=== PATIENT | female | born 1945 | race Caucasian/White ===

== ENCOUNTER 2021-07-21 09:48 | Observation (INO) | payer MEDICARE, MEDICAID, SELFPAY ==
[2021-07-21] VITALS (12 sets, daily range): BP systolic 136–184; BP diastolic 68–109; PULSE 53–106; RESP 18–97; TEMP 36.2–36.6; O2SAT 90–100; BMI 43.0
--- NOTE | ~2021-07-21 | XR_ITS ---
XR chest 1V portable 07/21/2021 11:25 Indication: Shortness of breath Procedure: AP portable chest Comparison: No prior studies for comparison. Findings: Cardiomegaly with interstitial edema. No significant effusion. No pneumothorax. No acute os seous abnormality. 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 Impression: 1: Cardiomegaly with interstitial edema. Reviewed, dictated and finalized at location B. Impression: 1: Cardiomegaly with interstitial edema.
--- NOTE | 2021-07-21 09:55 | ECG_ITS ---
Measurements Intervals [place] Rate: 98 P: 52 [place]: 150 QRS: 19 QRSD: 93 T: 71 QT: 328 QTc: 420 Interpretive Statements SINUS RHYTHM POSSIBLE LEFT ATRIAL ENLARGEMENT [-0.1mV P-WAVE IN V1/V2] NONSPECIFIC ST & T-WAVE ABNORMALITY POOR R-WAVE PROGRESSION ABNORMAL ECG NO PREVIOUS ECG AVAILABLE FOR COMPARISON Electronically Signed On 07-21-2021 10:28:31 CDT by Christopher Bush M.D.
--- NOTE | 2021-07-21 09:55 | ED.GENADULT ---
HPI - General Adult General Chief complaint: Shortness of Breath/Dyspnea Stated complaint: SOB History of Present Illness HPI narrative: 75-year-old female presenting to the emergency department from the eye clinic for evaluation of worsening shortness of breath. Patient was at the eye clinic for a cataract procedure. Patient had been told to hold her meds for today. Patient does have history of IL and CHF. Patient did not take her home medications this morning. While getting ready for the procedure they laid the patient back and she had worsened shortness of breath and had increased blood pressure. Upon arrival to the scene EMS found the patient to be saturating at 60% on room air with hypertension. Patient was placed on BiPAP and transferred to the emergency department. On arrival to the ED patient had very minimal air movement and BiPAP was maintained. Patient denies any recent illnesses cough colds or fevers. Patient denies any associated chest pain but does have some shortness of breath which she states she does feel is improving. History of IL and CHF. Related Data Home Medications Medication Instructions Recorded Confirmed carvedilol 12.5 mg tablet 1 tablet PO BID 07/21/21 07/21/21 cholecalciferol (vitamin D3) 50 50 mcg PO BID 07/21/21 07/21/21 mcg (2,000 unit) tablet (Vitamin D3) fluticasone furoate 100 1 ea inhalation PRN 07/21/21 07/21/21 mcg-vilanterol 25 mcg/dose inhalation powder (Breo Ellipta) hydralazine 25 mg tablet 1 tablet PO BID 07/21/21 07/21/21 rosuvastatin 40 mg tablet 1 tablet PO DAILY 07/21/21 07/21/21 Allergies Allergy/AdvReac Type Severity Reaction Status Date / Time aspirin AdvReac Other Verified 07/21/21 09:52 Sulfa (Sulfonamide AdvReac Headache Verified 07/21/21 09:52 Antibiotics) Review of Systems Review of Systems: CONSTITUTIONAL: Denies fever, chills, or sweats. EYES: Denies visual changes, redness, or discharge. ENT: Denies rhinorrhea, congestion, sore throat, or otalgia. CARDIOVASCULAR: See HPI RESPIRATORY: See HPI GASTROINTESTINAL: Denies abdominal pain, nausea, vomiting, or diarrhea. GENITOURINARY: Denies dysuria or hematuria. SKIN: Denies rash or itching. MUSCULOSKELETAL: Denies back pain, joint pain, or myalgia. NEUROLOGIC: Denies headache, numbness, or weakness. PSYCHIATRIC: Denies anxiety or depression. [facility] Past Medical History Medical History (Updated 07/21/21 @ 15:58 by Rody Brink APRN) Asthma Chronic kidney disease Coronary artery disease Hypertension Surgical History Surgical History (Updated 07/21/21 @ 15:58 by Rody Brink APRN) Stented coronary artery Patient states 6 coronary stents Social History Social History Smoking status: Never smoker Alcohol intake: never Substance use: never Spiritual care concerns: No Exam Narrative: APPEARANCE: Some respiratory distress upon arrival. HEAD: normocephalic, atraumatic. EYES: PERRLA/EOMI, conjunctivae clear. NOSE: Normal no drainage THROAT: Pharynx clear, no exudate. NECK: Supple. No adenopathy, no masses. RESPIRATORY: Minimal air movement but rhonchi in lower lobes CARDIOVASCULAR: Tachycardia with regular rhythm ABDOMINAL: Soft, nontender, nondistended, normal bowel sounds MUSCULOSKELETAL: Moves all extremities. Lower extremity edema NEURO: Alert. Cranial nerves II through XII intact. Grossly intact SKIN: Warm, dry. Normal Color PSYCHIATRIC: Normal affect/mood. Course Course Emergency Course: Patient was initially placed on BiPAP with settings 14/7. Patient was treated with IV Lasix, and patient was also treated with IV hydralazine. Patient was also restarted on her morning medications of carvedilol and p.o. hydralazine. Patient did remove herself from BiPAP and tolerated nasal cannula. Patient trialed herself off of nasal cannula but had a desaturation down and to the 70s. When placed back on nasal cannula at 2 L patient saturation is high 90s.
[2021-07-21] MEDS: ALBUTEROL SULFATE NEB 2.5 MG/3 ML INH 10 MG INHALATION (09:59)
[2021-07-21] MEDS: IPRATROPIUM BR 0.02% INH SOLN 0.5 MG/2.5 ML VIAL 2 MG INHALATION (09:59)
[2021-07-21 10:14] LABS: Basophils Percent Auto 0.3 % (0.2-1.2); Eosinophils Absolute Auto 0.1 K/mm3 (0-0.3); Hematocrit 40.8 % (37.0-47.0); Hemoglobin 12.9 g/dL (12.0-15.0); Immature Granulocyte Absolute 0.02 K/mm3 (0.00-0.031); Immature Granulocyte Percent A 0.3 % (0-0.5); Lymphocytes Absolute Auto 1.41 K/mm3 (0.9-3.2); Lymphocytes Percent Auto 22.5 % (18.3-44.2); Mean Corpuscular HGB Conc 31.6 g/dl (32-36); Mean Corpuscular Hemoglobin 26.5 pg (26-34); Mean Corpuscular Volume 83.8 fl (80-100); Mean Platelet Volume 9.9 fl (7.4-10.4); Monocytes Absolute Auto 0.3 K/mm3 (0.1-0.6); Monocytes Percent Auto 4.8 % (2.6-8.5); Neutrophils Absolute Auto 4.5 K/mm3 (1.3-6.7); Neutrophils Percent Auto 71.1 % (45.5-73.1); Platelet Count Result 213 k/mm3 (150-375); Red Blood Count 4.87 M/mm3 (4.2-5.4); Red Cell Distribution Width 15.3 % (11.5-14.5); White Blood Count 6.3 K/mm3 (4.5-10.0)
[2021-07-21 10:15] LABS: Alveolar/Arterial O2 Gradient 207.3 mmHg; Base Excess ABG 0.2 mEq/l (+/-2.0); Fractional Inspired Oxygen 60 %; Oxygen Content ABG 18.6 %vol (16.0-22.0); Oxygen Saturation ABG 99.1 % (95.0-100.0); Oxyhemoglobin 97.7 % THb (90.0-100.0); PCO2 ABG 46.4 mmHg (35.0-45.0); PO2 ABG 169.5 mmHg (80.0-100.0); PO2 FiO2 Ratio Arterial Blood 2.83 %; Total Hemoglobin 13.3 g/dL (12.0-18.0); pH ABG 7.366 (7.350-7.450)
[2021-07-21 10:16] LABS: Device NON-INVASIVE VENT; Modified Allen's Test Pass; Site Drawn RIGHT RADIAL
[2021-07-21 10:17] LABS: Non-Invasive Expiratory Pressure 7 CMH2O; Non-Invasive Inspiratory Pressure 14 CMH2O; Non-Invasive Vent Rate 12 /MIN
[2021-07-21] MEDS: FUROSEMIDE INJ 40 MG/4 ML VIAL IV PUSH ×2 (10:21→21:37)
[2021-07-21 10:23] LABS: Alanine Aminotransferase 20 U/L (6-35); Albumin Level 4.6 g/dL (3.5-5.1); Alkaline Phosphatase 119 U/L (38-126); Anion Gap 9 mmol/L (8-16); Aspartate Amino Transferase 26 U/L (14-36); Bilirubin,Total 1.1 mg/dL (0.2-1.3); Blood Urea Nitrogen 14 mg/dL (7-17); Calcium 8.5 mg/dL (8.4-10.2); Carbon Dioxide 28 mmol/L (22-30); Chloride 104 mmol/L (98-107); Estimated Glomerular Filt Rate > 60; Glucose 125 mg/dL (65-110); INR 1.1; Potassium 3.7 mmol/L (3.4-5.0); Prothrombin Time 14.2 Seconds (11.1-14.7); Sodium 141 mmol/L (137-145)
[2021-07-21] MEDS: methylPREDNISolone SOD SUCC 125 MG VIAL IV PUSH (10:23)
[2021-07-21 10:24] LABS: Partial Thromboplastin Time 27.5 SECONDS (22.3-36.8)
[2021-07-21] MEDS: carvediloL 12.5 MG TABLET PO (10:27)
[2021-07-21] MEDS: hydrALAZINE HCL 25 MG TABLET PO (10:27)
[2021-07-21 10:35] LABS: NT Pro B Type Natriuretic Pept 2480 pg/mL (5-100); Troponin I < 0.012 ng/mL (0.000-0.034)
[2021-07-21] MEDS: ONDANSETRON INJ 4 MG/2 ML VIAL IV PUSH (12:14)
[2021-07-21 13:56] LABS: Troponin I 0.019 ng/mL (0.000-0.034)
[2021-07-21 13:59] LABS: Appearance Urine Clear (Clear); Bilirubin Urine Negative (Negative); Blood Urine Trace-lysed (Negative); Color Urine Yellow (Yellow); Glucose Urine UA Negative (Negative); Ketones Urine Negative (Negative); Leukocyte Esterase Ur Negative LEU/UL (Negative); Nitrate Urine Negative (Negative); Protein Urine Negative (Negative); Specific Grav Ur 1.015 (1.001-1.035); Urobilinogen Urine 0.2 mg/dL (<2.0); pH Urine 5.5 (5.0-9.0)
[2021-07-21 14:02] LABS: Bacteria Urine Trace /hpf; Squamous Epithelial Cell Urine Rare /hpf (Few); WBC Urine 0-3 /hpf
[2021-07-21 14:03] LABS: Add Urine Microscopic? YES
[2021-07-21] MEDS: ARTIFICIAL TEARS OPHTH SOLN 15 ML BOTTLE 1 DROP EACH EYE (15:16)
--- NOTE | 2021-07-21 15:48 | PM.IMHP ---
H&P: HPI History of Present Illness Date/Time: Patient was placed observation status for expected length of stay less than 23 hours for management, will plan to re-evaluate tomorrow for improvement. 07/21/21 15:48 Chief Complaint: Shortness of breath Narrative: Ms. Medina is a 75-year-old female who presented emergency room with abrupt onset of shortness of breath when trying to lay down at cataracts under today. Patient states she was to undergo right cataract surgery today and she did not take her morning medications as instructed and when she went to lay down she became extremely short of breath and had to sit up. Patient states that her shortness of breath continued and EMS was called. Per emergency room records when EMS arrived patient had O2 saturation of 60% on room air and was extremely hypertensive. Patient was placed on BiPAP and transported to the emergency room. Upon evaluation emergency room patient had minimal air movement per notes and patient was given IV Lasix as well as a nebulizer treatment. Patient was able to come off of BiPAP and placed on oxygen at 2 L per nasal cannula and is significantly improved at this time. Patient states that on Wednesday she was having some shortness of breath when she was sitting outside and she did have to use her albuterol inhaler was feeling fine after this. Patient states she does have a history of asthma this can occur she is slight to lung. Patient states she was feeling fine Wednesday had no issues and this morning was still feeling well and his she went to lay down at the cataract Center. Patient denies wearing any oxygen at home. Patient denies any chest pain, lightheadedness, dizziness, syncopal, or near syncopal episodes. 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 In the emergency room patient also received hydralazine which did improve her blood pressure. Patient's main complaint at this time is that her right eye feels very irritated secondary to having multiple eyedrops placed at the eye surgery center. Chest x-ray was performed the emergency room that did show cardiomegaly with interstitial edema. Per patient she has a past medical history of asthma, coronary artery disease status post stent placement, hypertension, cataracts, and chronic kidney disease. Review of Systems Review of Systems: A 12 point review of systems was completed patient all pertinent positive and negative per HPI the remainder are unremarkable. [facility] Past Medical History Medical History (Updated 07/21/21 @ 15:58 by Rody Brink APRN) Asthma Chronic kidney disease Coronary artery disease Hypertension Surgical History Surgical History (Updated 07/21/21 @ 15:58 by Rody Brink APRN) Stented coronary artery Patient states 6 coronary stents Meds Home Medications and Allergies Home Medications Medication Instructions Recorded Confirmed Type albuterol sulfate 90 mcg/actuation inh inhalation 07/21/21 07/21/21 History aerosol inhaler carvedilol 12.5 mg tablet tablet 07/21/21 History cholecalciferol (vitamin D3) 50 50 mcg PO DAILY 07/21/21 History mcg (2,000 unit) tablet (Vitamin D3) fluticasone furoate 100 ea inhalation 07/21/21 History mcg-vilanterol 25 mcg/dose inhalation powder (Breo Ellipta) hydralazine 25 mg tablet tablet 07/21/21 History ketorolac 0.5 % eye drops drp 07/21/21 History ofloxacin 0.3 % eye drops drp 07/21/21 History prednisolone acetate 1 % eye drp 07/21/21 History drops,suspension rosuvastatin 40 mg tablet tablet 07/21/21 History Allergies Allergy/AdvReac Type Severity Reaction Status Date / Time aspirin AdvReac Other Verified 07/21/21 09:52 Sulfa (Sulfonamide AdvReac Headache Verified 07/21/21 09:52 Antibiotics) Vital Signs Vital Signs - 24 hr 07/21/21 09:44 07/21/21 10
--- NOTE | 2021-07-21 17:37 | ADMGEN ---
This patient, Muriel Medina, was admitted to IMU Room 211-01. Patient/family oriented to hospital policies and general routines including ID bracelet, bed and alarms, visiting hours, pain management, procedures, bathroom and other care routines, personal items, smoking policy, room service/diet, and visiting hours. Information on how to activate the Rapid Response Team has been discussed. Patient/Family are encouraged to report perceived risks to care and to ask questions if they do not understand what they are told or what they should do.
--- NOTE | 2021-07-21 23:48 | PC.NURSE ---
patient to be transferred to [facility]. report called to muna baez.
[2021-07-22] VITALS (12 sets, daily range): BP systolic 129–169; BP diastolic 60–74; PULSE 51–73; RESP 18–20; TEMP 36.5–36.9; O2SAT 95–100
--- NOTE | 2021-07-22 | ECHO_ITS ---
Patient Info Name: Muriel Medina Age: 75 years : 1945 Gender: Female Ht: 61 in Wt: 221 lbs BSA: 2.13 m2 HR: 57 bpm BP: 129 / 60 mmHg Heart Rhythm: Sinus Rhythm Technical Quality: Fair Exam Date: 07/22/2021 3:13 PM Exam Location: [facility] Patient Status: Outpatient Admit Date: 07/21/2021 Staff Ordering Physician: Rody Brink APRN Supervisor Clam Bed: Zoey Moya RDCS Attending Provider: Daria Luke PA-C Referring Physician: Keena PASTOR; Exam Type: CA echo dop color flow w con Study Info Indications - CHF Complete two-dimensional, color flow and Doppler transthoracic echocardiogram is performed with contrast to opacify the left ventricle and to improve the deliniation of the left ventricle endocardial borders. Contrast/Agitated Saline Contrast/Ag. Saline: Definity Amount: 3.00 ml Administered By: Zoey Moya RDCS Existing IV Access: Yes IV Access Condition: patent with no signs of infiltration Summary 1. Normal left ventricular size with mild concentric hypertrophy. Severe hypo mid septal hypokinesis and akinesis of the apical septum, apical anterior wall, apical lateral wall, apical inferior wall and apex itself. Grade 2 diastolic dysfunction is present. Calculated ejection fraction 20%. Estimated ejection fraction visually is 20-25%. 2. Left atrial chamber dimension is mildly enlarged. 3. No significant valve disease. 4. No pulmonary hypertension, estimated pulmonary arterial systolic pressure is 21 mmHg. 5. Sinus bradycardia. Left Ventricle Left ventricular chamber dimension is normal. Left ventricular systolic function is normal, estimated at 20-25%. There is mildly increased left ventricular wall thickness. Left ventricular septal wall motion is normal. The left ventricular diastolic function is grade II diastolic dysfunction. Right Ventricle Right ventricular chamber dimension is normal. Right ventricular systolic function is normal. Left Atria Left atrial chamber dimension is mildly enlarged. Right Atria Right atrial chamber dimension is normal. Aortic Valve The aortic valve is trileaflet. There is no aortic valve sclerosis. There is no aortic valve stenosis. There is no aortic valve regurgitation. Pulmonic Valve The pulmonic valve is normal. There is no pulmonic valve stenosis. There is no pulmonic regurgitation. Mitral Valve The mitral valve has normal leaflets. There is no mitral valve stenosis. There is trace mitral valve regurgitation. Tricuspid Valve The tricuspid valve leaflets are normal. There is no significant tricuspid valve stenosis. There is trace tricuspid valve regurgitation. No pulmonary hypertension, estimated pulmonary arterial systolic pressure is 21 mmHg. Pericardium/Pleural The pericardium appears normal. There is no pericardial effusion. Inferior Vena Cava Normal inferior vena cava with >50% collapse upon inspiration consistent with Empty right atrial pressure, 10 mmHg. Aorta The aortic root size at the sinus of Valsalva is normal. The prox ascending aorta size is normal. Left Ventricular Outflow Tract Name Value Normal LVOT 2D
[2021-07-22 06:25] LABS: Basophils Percent Auto 0.2 % (0.2-1.2); Hematocrit 39.8 % (37.0-47.0); Hemoglobin 12.7 g/dL (12.0-15.0); Immature Granulocyte Absolute 0.02 K/mm3 (0.00-0.031); Immature Granulocyte Percent A 0.3 % (0-0.5); Lymphocytes Absolute Auto 1.06 K/mm3 (0.9-3.2); Lymphocytes Percent Auto 16.9 % (18.3-44.2); Mean Corpuscular HGB Conc 31.9 g/dl (32-36); Mean Corpuscular Hemoglobin 26.6 pg (26-34); Mean Corpuscular Volume 83.3 fl (80-100); Mean Platelet Volume 10.4 fl (7.4-10.4); Monocytes Absolute Auto 0.2 K/mm3 (0.1-0.6); Monocytes Percent Auto 2.7 % (2.6-8.5); Neutrophils Percent Auto 79.9 % (45.5-73.1); Platelet Count Result 241 k/mm3 (150-375); Red Blood Count 4.78 M/mm3 (4.2-5.4); Red Cell Distribution Width 14.9 % (11.5-14.5); White Blood Count 6.3 K/mm3 (4.5-10.0)
[2021-07-22 06:55] LABS: Anion Gap 10 mmol/L (8-16); Blood Urea Nitrogen 18 mg/dL (7-17); Calcium 8.5 mg/dL (8.4-10.2); Carbon Dioxide 30 mmol/L (22-30); Chloride 100 mmol/L (98-107); Estimated CRCL calculation 53 ml/min; Estimated Glomerular Filt Rate > 60; Glucose 134 mg/dL (65-110); Magnesium 2.1 mg/dL (1.6-2.3); Potassium 3.7 mmol/L (3.4-5.0); Sodium 140 mmol/L (137-145)
[2021-07-22] MEDS: ENOXAPARIN 40 MG/0.4 ML SYRINGE SUB-Q (08:49)
[2021-07-22] MEDS: FUROSEMIDE INJ 40 MG/4 ML VIAL IV PUSH ×2 (08:49→20:56)
[2021-07-22] MEDS: hydrALAZINE HCL 25 MG TABLET PO ×2 (11:29→20:57)
[2021-07-22] MEDS: ROSUVASTATIN 10 MG TABLET 40 MG PO (11:29)
[2021-07-22] MEDS: carvediloL 12.5 MG TABLET PO ×2 (11:29→20:57)
--- NOTE | 2021-07-22 11:39 | PM.IMPN ---
Progress Note: A&P Assessment and Plan (1) Congestive heart failure: Qualifiers: Heart failure chronicity: acute on chronic Code(s): I50.9 - Heart failure, unspecified Status: Acute Assessment and Plan: -tropx2 negative -no prior hx of CHF documented, this episode may have been secondary to hypertensive episode as she did not take her medications yesterday? -Patient significantly improved after receiving IV Lasix and nebulizer treatment. -was on 2L NC but was weaned down to RA today -obtain echo (2) Hypertension: Code(s): I10 - Essential (primary) hypertension Status: Acute Assessment and Plan: -continue home meds (3) Bilateral cataracts: Code(s): H26.9 - Unspecified cataract Status: Acute Assessment and Plan: -At this point time patient will have to wait cataract surgery and be re-evaluated by primary care and Cardiology prior to surgery. Subjective Date/time seen: 07/22/21 11:39 Interval history: 75-year-old female w/ hx of asthma, coronary artery disease status post stent placement, hypertension, cataracts, and chronic kidney disease, admitted for acute onset sob. Pt is feeling better today. She is off of oxygen. Denies cp or sob. Has some right eye irritation. No LE pain or edema. Review of Systems Review of Systems: All systems reviewed & are unremarkable except as noted in HPI and below Exam Narrative: General: No acute distress, non toxic appearing, morbidly obese Eyes: PERRL, no scleral icterus HEENT: NCAT, external ears normal, MMM Respiratory: No respiratory distress, Lungs CTA bilaterally, no wheezing Cardiovascular: RRR, no murmur Abdominal: Soft, nontender, non distended, no rebound or guarding Musculoskeletal: Moves all 4 extremities, no edema Neurological: A/Ox3, speech clear, no facial asymmetry Skin: Warm, dry, no rashes Psychiatric: Normal affect, normal mood Objective Data Vital Signs Vital Signs: Vital Signs - 24 hr 07/21/21 12:15 07/21/21 17:23 07/21/21 17:18 Temperature 97.1 F L Pulse Rate 82 67 Respiratory Rate 18 20 Blood Pressure 170/74 H 151/68 H Pulse Oximetry 99 100 99 Oxygen Delivery Nasal Cannula Oxygen Flow Rate 2 07/21/21 18:00 07/21/21 20:00 07/21/21 20:00 Temperature 97.8 F Pulse Rate 72 60 66 Respiratory Rate 97 H Blood Pressure 136/70 Pulse Oximetry 95 Oxygen Delivery Oxygen Flow Rate 07/21/21 20:00 07/21/21 21:42 07/21/21 22:00 Temperature Pulse Rate 66 53 L Respiratory Rate 97 H Blood Pressure Pulse Oximetry 95 95 Oxygen Delivery Nasal Cannula Nasal Cannula Oxygen Flow Rate 2 2 07/22/21 00:26 07/22/21 04:00 07/22/21 05:33 Temperature 98.0 F 98.0 F Pulse Rate 56 L 51 L 52 L Respiratory Rate 18 18 Blood Pressure 169/64 H 145/74 H Pulse Oximetry 100 100 Oxygen Delivery Oxygen Flow Rate 07/22/21 08:00 07/22/21 08:00 07/22/21 11:29 Temperature Pulse Rate 55 L 62 Respiratory Rate Blood Pressure Pulse Oximetry 95 Oxygen Delivery Room Air Oxygen Flow Rate Meds/Results Medications: Active Medications Generic Name Dose Route Start Last Admin Trade Name Freq PRN Reason Stop Dose Admin Albuterol 2.5 mg 07/21/21 14:51 Albuterol Sulfate Neb 2.5 Mg/0.5 Ml Inh INHALATION Q4HRT PRN Shortness Of Breath Artificial Tears 1 drop 07/21/21 13:33 07/21/21 15:16 Artificial Tears Ophth Soln 15 Ml Bottle EACH EYE 1 drop QID PRN Administration Dry Eye(s) Carvedilol 12.5 mg 07/22/21 11:15 07/22/21 11:29 Carvedilol 12.5 Mg Tablet PO 12.5 mg Q12HR RAKESH Administration Enoxaparin Sodium 40 mg 07/22/21 09:00 07/22/21 08:49 Enoxaparin 40 Mg/0.4 Ml Syringe SUB-Q 40 mg DAILY RAKESH Administration Furosemide 40 mg 07/21/21 21:00 07/22/21 08:49 Furosemide Inj 40 Mg/4 Ml Vial IV PUSH 40 mg Q12HR RAKESH Administration Hydralazine HC
[2021-07-22] MEDS: PERFLUTREN LIPID MICROSPHERES 1.5 ML VIAL DILUTED TO 10 ML TOTAL VOLUME IV PUSH (15:48)
--- NOTE | 2021-07-22 15:48 | IVDEFINITY ---
Prior to administration of IV Definity the patient was educated on the risks and benefits of the imaging enhancing agent including potential adverse side effects. The patient verbalized understanding. Allergies were verified. No exclusion criteria were identified and at least one of the following inclusion criteria were met: 1) physician request, 2) patient technically difficult to image (per the [place] [employer]ocardi[employer] guidelines of two or more segments not discernable within the apical view), or 3) questionable left ventricular function. ?
[2021-07-22] MEDS: CHOLECALCIFEROL 1,000 UNITS TABLET 2000 UNITS PO (16:29)
[2021-07-22] MEDS: FLUTICASONE/SALMETEROL 115-21 MCG INHALER 1 PUFF INHALATION (21:56)
[2021-07-23] VITALS (12 sets, daily range): BP systolic 114–123; BP diastolic 55–76; PULSE 57–93; RESP 14–18; TEMP 36.3–36.6; O2SAT 93–98
[2021-07-23 06:10] LABS: Basophils Percent Auto 0.2 % (0.2-1.2); Eosinophils Percent Auto 0.1 % (0-4.4); Hematocrit 37.1 % (37.0-47.0); Hemoglobin 11.6 g/dL (12.0-15.0); Immature Granulocyte Absolute 0.02 K/mm3 (0.00-0.031); Immature Granulocyte Percent A 0.2 % (0-0.5); Lymphocytes Absolute Auto 2.34 K/mm3 (0.9-3.2); Lymphocytes Percent Auto 29.1 % (18.3-44.2); Mean Corpuscular HGB Conc 31.3 g/dl (32-36); Mean Corpuscular Hemoglobin 26.2 pg (26-34); Mean Corpuscular Volume 83.7 fl (80-100); Mean Platelet Volume 10.1 fl (7.4-10.4); Monocytes Absolute Auto 0.5 K/mm3 (0.1-0.6); Monocytes Percent Auto 6.6 % (2.6-8.5); Neutrophils Absolute Auto 5.1 K/mm3 (1.3-6.7); Neutrophils Percent Auto 63.8 % (45.5-73.1); Platelet Count Result 212 k/mm3 (150-375); Red Blood Count 4.43 M/mm3 (4.2-5.4); Red Cell Distribution Width 15.3 % (11.5-14.5)
[2021-07-23 06:38] LABS: Anion Gap 6 mmol/L (8-16); Blood Urea Nitrogen 29 mg/dL (7-17); Calcium 8.1 mg/dL (8.4-10.2); Carbon Dioxide 33 mmol/L (22-30); Chloride 100 mmol/L (98-107); Estimated CRCL calculation 38 ml/min; Estimated Glomerular Filt Rate 40; Glucose 94 mg/dL (65-110); Potassium 3.3 mmol/L (3.4-5.0); Sodium 139 mmol/L (137-145)
[2021-07-23] MEDS: hydrALAZINE HCL 25 MG TABLET PO ×2 (08:43→22:16)
[2021-07-23] MEDS: POTASSIUM CHLORIDE 20 MEQ TABLET PO (08:43)
[2021-07-23] MEDS: ENOXAPARIN 40 MG/0.4 ML SYRINGE SUB-Q (08:43)
[2021-07-23] MEDS: carvediloL 12.5 MG TABLET PO ×2 (08:43→22:16)
[2021-07-23] MEDS: CHOLECALCIFEROL 1,000 UNITS TABLET 2000 UNITS PO ×2 (08:44→16:22)
[2021-07-23] MEDS: ROSUVASTATIN 10 MG TABLET 40 MG PO (08:44)
--- NOTE | 2021-07-23 11:01 | PCRCNOTE ---
Window of time for administration has passed. See next scheduled administration.
--- NOTE | 2021-07-23 14:39 | PM.IMPN ---
Progress Note: A&P Assessment and Plan (1) Congestive heart failure: Qualifiers: Heart failure chronicity: acute on chronic Code(s): I50.9 - Heart failure, unspecified Status: Acute Assessment and Plan: -tropx2 negative -no prior hx of CHF documented, this episode may have been secondary to hypertensive episode as she did not take her medications yesterday? -Patient significantly improved after receiving IV Lasix and nebulizer treatment. -was on 2L NC but was weaned down to RA -echo pending (2) Hypertension: Code(s): I10 - Essential (primary) hypertension Status: Acute Assessment and Plan: -continue home meds (3) Bilateral cataracts: Code(s): H26.9 - Unspecified cataract Status: Acute Assessment and Plan: -At this point time patient will have to wait cataract surgery and be re-evaluated by primary care and Cardiology prior to surgery. (4) IBRAHIMA (acute kidney injury): Code(s): N17.9 - Acute kidney failure, unspecified Status: Acute Assessment and Plan: -likely secondary to IV lasix -pt breathing well, stopped IV lasix today -echo still pending -recheck BMP tomorrow (5) Hypokalemia: Code(s): E87.6 - Hypokalemia Status: Acute Assessment and Plan: -also likely due to IV lasix -lasix stopped -gave one time dose of 20 meq KCL PO -recheck BMP in AM Subjective Date/time seen: 07/23/21 14:39 Interval history: 75-year-old female w/ hx of asthma, coronary artery disease status post stent placement, hypertension, cataracts, and chronic kidney disease, admitted for acute onset sob. Pt is feeling good today. Has been sleeping most of the day. She is off of oxygen. Denies cp or sob. Has some right eye irritation still. No LE pain or edema. Review of Systems Review of Systems: All systems reviewed & are unremarkable except as noted in HPI and below Exam Narrative: General: No acute distress, non toxic appearing, morbidly obese Eyes: PERRL, no scleral icterus HEENT: NCAT, external ears normal, MMM Respiratory: No respiratory distress, Lungs CTA bilaterally, no wheezing Cardiovascular: RRR, no murmur Abdominal: Soft, nontender, non distended, no rebound or guarding Musculoskeletal: Moves all 4 extremities, no edema Neurological: A/Ox3, speech clear, no facial asymmetry Skin: Warm, dry, no rashes Psychiatric: Normal affect, normal mood Objective Data Vital Signs Vital Signs: Vital Signs - 24 hr 07/22/21 14:40 07/22/21 16:00 07/22/21 20:57 Temperature Pulse Rate 57 L 58 L Respiratory Rate Blood Pressure Pulse Oximetry 95 Oxygen Delivery Nasal Cannula Oxygen Flow Rate 2 07/22/21 20:00 07/22/21 20:00 07/22/21 22:43 Temperature 98.4 F Pulse Rate 56 L 58 L Respiratory Rate 18 Blood Pressure 132/70 Pulse Oximetry 99 Oxygen Delivery Room Air Oxygen Flow Rate 07/23/21 00:00 07/23/21 04:00 07/23/21 06:21 Temperature 98 F Pulse Rate 57 L 64 93 Respiratory Rate 18 Blood Pressure 119/76 Pulse Oximetry 97 Oxygen Delivery Oxygen Flow Rate 07/23/21 08:43 07/23/21 08:00 07/23/21 08:00 Temperature Pulse Rate 65 79 Respiratory Rate Blood Pressure Pulse Oximetry 93 Oxygen Delivery Room Air Oxygen Flow Rate 07/23/21 12:00 Temperature Pulse Rate 58 L Respiratory Rate Blood Pressure Pulse Oximetry Oxygen Delivery Oxygen Flow Rate Intake/Output Intake/Output: Intake & Output 07/20/21 07/21/21 07/22/21 07/23/21 23:59 23:59 23:59 23:59 Intake Total 540 470 Output Total 150 Balance 540 320 Meds/Results Medications: Active Medications Generic Name Dose Route Start Last Admin Trade Name Freq PRN Reason Stop Dose Admin Albuterol 2.5 mg 07/21/21 14:51 Albuterol Sulfate Neb 2.5 Mg/0.5 Ml Inh INHALATION Q4HRT PRN Shortness Of Breath [place]
[2021-07-23] MEDS: FLUTICASONE/SALMETEROL 115-21 MCG INHALER 1 PUFF INHALATION (19:52)
[2021-07-24] VITALS (13 sets, daily range): BP systolic 124–148; BP diastolic 53–68; PULSE 57–70; RESP 18–20; TEMP 36.2–37.1; O2SAT 94–100
[2021-07-24 06:20] LABS: Basophils Percent Auto 0.6 % (0.2-1.2); Eosinophils Absolute Auto 0.1 K/mm3 (0-0.3); Eosinophils Percent Auto 0.9 % (0-4.4); Hematocrit 37.2 % (37.0-47.0); Hemoglobin 11.4 g/dL (12.0-15.0); Immature Granulocyte Absolute 0.01 K/mm3 (0.00-0.031); Immature Granulocyte Percent A 0.2 % (0-0.5); Lymphocytes Absolute Auto 2.51 K/mm3 (0.9-3.2); Lymphocytes Percent Auto 46.4 % (18.3-44.2); Mean Corpuscular HGB Conc 30.6 g/dl (32-36); Mean Corpuscular Hemoglobin 26.1 pg (26-34); Mean Corpuscular Volume 85.3 fl (80-100); Mean Platelet Volume 10.4 fl (7.4-10.4); Monocytes Absolute Auto 0.5 K/mm3 (0.1-0.6); Neutrophils Absolute Auto 2.3 K/mm3 (1.3-6.7); Neutrophils Percent Auto 41.9 % (45.5-73.1); Platelet Count Result 205 k/mm3 (150-375); Red Blood Count 4.36 M/mm3 (4.2-5.4); Red Cell Distribution Width 15.3 % (11.5-14.5); White Blood Count 5.4 K/mm3 (4.5-10.0)
[2021-07-24 06:43] LABS: Anion Gap 6 mmol/L (8-16); Blood Urea Nitrogen 26 mg/dL (7-17); Calcium 8.2 mg/dL (8.4-10.2); Carbon Dioxide 31 mmol/L (22-30); Chloride 101 mmol/L (98-107); Estimated CRCL calculation 48 ml/min; Estimated Glomerular Filt Rate 54; Glucose 89 mg/dL (65-110); Potassium 3.3 mmol/L (3.4-5.0); Sodium 138 mmol/L (137-145)
[2021-07-24] MEDS: FLUTICASONE/SALMETEROL 115-21 MCG INHALER 1 PUFF INHALATION ×2 (08:43→21:20)
[2021-07-24] MEDS: CHOLECALCIFEROL 1,000 UNITS TABLET 2000 UNITS PO ×2 (09:03→16:51)
[2021-07-24] MEDS: carvediloL 12.5 MG TABLET PO ×2 (09:03→20:54)
[2021-07-24] MEDS: ENOXAPARIN 40 MG/0.4 ML SYRINGE SUB-Q (09:03)
[2021-07-24] MEDS: hydrALAZINE HCL 25 MG TABLET PO ×2 (09:03→20:54)
[2021-07-24] MEDS: ROSUVASTATIN 10 MG TABLET 40 MG PO (09:04)
--- NOTE | 2021-07-24 11:52 | PM.IMPN ---
Progress Note: A&P Assessment and Plan (1) Congestive heart failure: Qualifiers: Heart failure chronicity: acute on chronic Heart failure type: combined systolic and diastolic Qualified Code(s): I50.43 - Acute on chronic combined systolic (congestive) and diastolic (congestive) heart failure Code(s): I50.9 - Heart failure, unspecified Status: Acute Assessment and Plan: -tropx2 negative -no prior hx of CHF documented or prior echocardiograms available. -07/24 TTE shows EF 20-25%, mild LVH, severe hypokinesis, and grade 2 diastolic dysfunction. -Continue coreg, hydralazine. Start farxiga 10 mg daily and low dose furosemide 20 mg daily. Consider adding MAXWELL-I/ARB versus Entresto prior to discharge. -Repeat pro-BNP tomorrow. ' -K 3.3. give 40 mEQ PO x1 now. -Will discharge tomorrow if still stable with early follow up with Outpatient Cardiology. -HF teaching per nursing. (2) Hypertension: Code(s): I10 - Essential (primary) hypertension Status: Acute Assessment and Plan: -continue home meds (3) Bilateral cataracts: Code(s): H26.9 - Unspecified cataract Status: Acute Assessment and Plan: -Hold cataract surgery until optimized by medications. Then follow up after re-evaluated by primary care and Cardiology prior to surgery. (4) IBRAHIMA (acute kidney injury): Code(s): N17.9 - Acute kidney failure, unspecified Status: Acute Assessment and Plan: -Stable. BUN 26, creatinine 1.0, GFR 54 (5) Hypokalemia: Code(s): E87.6 - Hypokalemia Status: Acute Assessment and Plan: -also likely due to IV lasix -40 mEQ PO KCl x1 today. -Repeat BMP & Mag tomorrow. Subjective Date/time seen: 07/24/21 11:52 Interval history: 75-year-old female w/ hx of asthma, coronary artery disease status post stent placement, hypertension, cataracts, and chronic kidney disease, admitted for acute onset sob. No new complaints or overnight events. She denies chest pain, SOB at rest, abd pain, LE edema, N/V/D, constipation or orthopnea. She has not been ambulating much in the room or hallway. She reports seeing a Heating And Ventilating Worker in [place], Dr. Matson, but has not seen him recently. Review of Systems Review of Systems: All systems reviewed & are unremarkable except as noted in HPI and below Exam Narrative: General: No acute distress, non toxic appearing, morbidly obese. sitting up in bed. No oxygen. Eyes: PERRL, no scleral icterus HEENT: NCAT, external ears normal, MMM Respiratory: No respiratory distress, Lungs CTA bilaterally diminished bilateral lower lobes, no wheezing. speaking in full sentences. Cardiovascular: RRR, no murmur, gallop or rub. Abdominal: Soft, nontender, non distended, no rebound or guarding. Normoactive bowel sounds. Musculoskeletal: Moves all 4 extremities, no edema Neurological: A/Ox3, speech clear, no facial asymmetry Skin: Warm, dry, no rashes Psychiatric: Normal affect, normal mood Objective Data Vital Signs Vital Signs: Vital Signs - 24 hr 07/23/21 12:00 07/23/21 13:15 07/23/21 16:00 Temperature 97.4 F L Pulse Rate 58 L 60 60 Respiratory Rate 14 Blood Pressure 114/55 L Pulse Oximetry 98 Oxygen Delivery 07/23/21 19:53 07/23/21 21:56 07/23/21 22:16 Temperature 97.7 F Pulse Rate 61 67 Respiratory Rate 18 Blood Pressure 123/63 Pulse Oximetry 96 97 Oxygen Delivery Room Air 07/23/21 20:00 07/23/21 20:00 07/24/21 00:00 Temperature Pulse Rate 60 64 Respiratory Rate Blood Pressure Pulse Oximetry Oxygen Delivery Room Air 07/24/21 04:00 07/24/21 06:14 07/24/21 08:43 Temperature 97.2 F L Pulse Rate 60 63 Respiratory Rate 18 Blood Pressure 145/68 H Pulse Oximetry 97 95 Oxygen Delivery Room Air 07/24/21 08:00 07/24/21 09:03 Temperature Pulse Rate 70 66 Respiratory Rate Blood Pressure Pulse Oximetry Oxyge
[2021-07-24] MEDS: POTASSIUM CHLORIDE 20 MEQ TABLET 40 MEQ PO (12:45)
[2021-07-24] MEDS: FUROSEMIDE 20 MG TABLET PO (13:50)
[2021-07-24] MEDS: EMPAGLIFLOZIN 10 MG TABLET PO (13:50)
[2021-07-25] VITALS (8 sets, daily range): BP systolic 149; BP diastolic 57; PULSE 59–84; RESP 18; TEMP 37.1; O2SAT 96–98
[2021-07-25 09:44] LABS: Hematocrit 39.1 % (37.0-47.0); Hemoglobin 12.1 g/dL (12.0-15.0); Mean Corpuscular HGB Conc 30.9 g/dl (32-36); Mean Corpuscular Volume 84.1 fl (80-100); Mean Platelet Volume 10.1 fl (7.4-10.4); Platelet Count Result 222 k/mm3 (150-375); Red Blood Count 4.65 M/mm3 (4.2-5.4); Red Cell Distribution Width 15.2 % (11.5-14.5); White Blood Count 5.4 K/mm3 (4.5-10.0)
[2021-07-25 10:01] LABS: Anion Gap 7 mmol/L (8-16); Blood Urea Nitrogen 20 mg/dL (7-17); Calcium 8.6 mg/dL (8.4-10.2); Carbon Dioxide 30 mmol/L (22-30); Chloride 102 mmol/L (98-107); Estimated CRCL calculation 48 ml/min; Estimated Glomerular Filt Rate 54; Glucose 112 mg/dL (65-110); Magnesium 2.2 mg/dL (1.6-2.3); Potassium 3.7 mmol/L (3.4-5.0); Sodium 139 mmol/L (137-145)
[2021-07-25 10:03] LABS: NT Pro B Type Natriuretic Pept 1120 pg/mL (5-100)
[2021-07-25] MEDS: ENOXAPARIN 40 MG/0.4 ML SYRINGE SUB-Q (10:14)
[2021-07-25] MEDS: carvediloL 12.5 MG TABLET PO (10:14)
[2021-07-25] MEDS: hydrALAZINE HCL 25 MG TABLET PO (10:15)
[2021-07-25] MEDS: FUROSEMIDE 20 MG TABLET PO (10:15)
[2021-07-25] MEDS: CHOLECALCIFEROL 1,000 UNITS TABLET 2000 UNITS PO (10:15)
[2021-07-25] MEDS: EMPAGLIFLOZIN 10 MG TABLET PO (10:15)
[2021-07-25] MEDS: ROSUVASTATIN 10 MG TABLET 40 MG PO (10:15)
[2021-07-25] MEDS: FLUTICASONE/SALMETEROL 115-21 MCG INHALER 1 PUFF INHALATION (11:08)
--- NOTE | 2021-07-25 12:21 | PCCCNOTE ---
On 07/25/21, the student, [Marleny Moore], provided care and completed [facility] documentation on this patient. I have reviewed the student's documentation and agree with the findings.
--- NOTE | 2021-07-25 12:47 | PM.DS ---
DS: Admitting Diagnosis Discharge Date 07/25/2021 1305 Admitting Diagnosis Acute CHF exacerbation DS: Discharge Diagnosis Discharge Diagnosis (1) Congestive heart failure: Qualifiers: Heart failure chronicity: acute on chronic Heart failure type: combined systolic and diastolic Qualified Code(s): I50.43 - Acute on chronic combined systolic (congestive) and diastolic (congestive) heart failure Code(s): I50.9 - Heart failure, unspecified Status: Acute (2) IBRAHIMA (acute kidney injury): Code(s): N17.9 - Acute kidney failure, unspecified Status: Acute (3) Hypokalemia: Code(s): E87.6 - Hypokalemia Status: Acute (4) Hypertension: Code(s): I10 - Essential (primary) hypertension Status: Chronic DS: Summary Hospital Course Reason for hospitalization: dyspnea Hospital Course: Muriel Medina is a 75-year-old female with significant medical history of asthma, CAD s/p PTCA, hypertension, CKD unknown stage, and cataracts. She presented emergency room for evaluation of abrupt onset of shortness of breath when trying to lay flat for cataract surgery.?She reportedly did not take her morning medications as instructed and when she went to lay down she became extremely short of breath and had to sit up.? EMS was called.? Per emergency room records when EMS arrived patient had O2 saturation of 60% on room air and was extremely hypertensive.? Patient was placed on BiPAP and transported to the emergency room.?Patient reported having some shortness of breath when she was sitting outside and when in [place] this past month visiting family members. She had been drinking more fluids, marcella, ice chips and lemonade. She used her albuterol inhaler and was feeling fine after this.? Patient stated she was feeling fine Wednesday and had no issues.? Patient denied wearing any oxygen at home.? Patient denied any chest pain, lightheadedness, dizziness, syncopal, or near syncopal episodes. Patient follows with Cardiology secondary to having coronary artery disease status post stenting, but has been sometime since she has seen her credit and collections representative. Upon evaluation emergency room patient had minimal air movement, per notes, and was given IV Lasix, as well as a nebulizer treatment.? Patient was transitioned to oxygen at 2 L per nasal cannula and was significantly improved at this time.? In the emergency room patient also received hydralazine which did improve her blood pressure.? Patient's main complaint was her right eye irritatation secondary to having multiple eyedrops placed at the eye surgery center.? Chest x-ray was performed the emergency room that did show cardiomegaly with interstitial edema. The patient was admitted to the medical floor and continued on IV/PO diuretics. She was weaned to room air with good saturation, however, she was noted to have slightly worsening renal function following diuretics, which was closely monitored. Her potassium level was mildly low, likely secondary to diuretics and this was supplemented with good response. Transthoracic echocardiogram was completed demonstrating mild LVH, severe mid septal hypokinesis and akinesis of apical septum, apical anterior, lateral, and inferior wall, grade 2 diastolic dysfunction and EF of 20-25%. Cardiac enzymes were negative, pro-BNP was 2480 on admission, and EKG showed SR with nonspecific ST/t-wave changes. Coreg 12.5 mg BID and hydralazine 25 mg Q12 was continued. Farxiga 10 mg daily, furosemide 20 mg daily and Entresto 24/26 mg BID were initiated prior to discharge for HFrEF with acute exacerbation. She was counseled to follow up as soon as possible with her Extrusion Die Repairer, as well as her PCP within 1 week. She was counseled on medications, daily weights, diet and physical activity modifications. She was instructed on when to seek further care. The patient was discharged home in stable condition. Status at Discharge Cognitive/behavioral status at discha
--- NOTE | 2021-07-25 14:51 | PCDIET ---
RD consulted for diet education, pt had already been discharged at time of visit.
--- NOTE | 2021-07-25 15:13 | PCNSR ---
On 07/25/21, the student, Cielo Munson, provided care and completed [facility] documentation on this patient. I have reviewed the student's documentation and agree with the findings.
== END 2021-07-25 15:17 | disposition home or self-care (01) ==
LOC: ANHED 12:31 → ANH3MEDSUR 07-22 06:49 → ANHIMU 07-29 12:44
PROVIDERS: Nurse Practitioner Adult Health; Nurse Practitioner Family; Admitting Provider Internal Medicine; Emergency Provider Emergency Medicine; PCP Internal Medicine; Visit Provider Physician Assistant
DX: I11.0 Hypertensive heart disease with heart failure (principal); I50.43 Acute on chronic combined systolic (congestive) and diastolic (congestive) heart failure; N17.9 Acute kidney failure, unspecified; R06.02 Shortness of breath; E87.6 Hypokalemia; I25.10 Atherosclerotic heart disease of native coronary artery without angina pectoris; J45.909 Unspecified asthma, uncomplicated; H26.9 Unspecified cataract; Z95.5 Presence of coronary angioplasty implant and graft; Z79.51 Long term (current) use of inhaled steroids
CPT/HCPCS: 36415; 36600; 71045; 80048; 80053; 81001; 82805; 83735; 83880; 84484; 85025; 85027; 85610; 85730; 93005; 94002; 94640; 96372; 96374; 96375; 96376; 99285; A9270; C8929; G0378; J1650; J1940; J2405; J2930; Q9957